=== PATIENT | male | born 1985 | race Caucasian/White ===

== ENCOUNTER 2018-03-04 11:43 | Inpatient (IN) | payer SELFPAY ==
[~2018-03-04] VITALS: Ht 190.5 cm; Wt 96.6 kg
[2018-03-05 10:55] VITALS: BP 125/74
[2018-03-05] MEDS ORDERED: MOTRIN800 MG PO (11:52)
[2018-03-05] MEDS ORDERED: TYLENOL EXTRA500 MG PO (11:54)
[2018-03-05] MEDS ORDERED: LIORESAL10 MG PO (11:54)
[2018-03-05] MEDS ORDERED: BACLOFEN5 MG PO (11:55)
[2018-03-05] MEDS ORDERED: COLACE100 MG PO (11:56)
[2018-03-05] MEDS ORDERED: LOVENOX30 MG/0.3 SC (11:57)
[2018-03-05] MEDS ORDERED: SENNA8.6 MG PO (11:58)
[2018-03-05] MEDS ORDERED: MIRALAX17 GM PO (11:58)
[2018-03-05] MEDS ORDERED: PROVENTIL HFA6.7 GM IH (12:02)
[2018-03-05] MEDS ORDERED: LEXAPRO10 MG PO (12:03)
[2018-03-05] MEDS ORDERED: GABAPENTIN100 MG PO (12:04)
[2018-03-06 00:14] VITALS: BP 117/74
[2018-03-06 05:07] VITALS: BP 102/66
[2018-03-06 06:51] LABS: HEMATOCRIT 30.9 % (38.0-50.0); HEMOGLOBIN 10.2 G/DL (12.5-16.6); MCH 28.8 PG (29.0-34.0); MCV 87.3 FL (86-99); PLATELET COUNT 370 K/uL (156-360); RBC DIS.WIDTH-CV 13.1 % (11.8-14.6); RBC DIS.WIDTH-SD 40.5 % (39-53); RED BLOOD COUNT 3.54 M/uL (4.00-5.50); WHITE BLOOD COUNT 6.7 K/uL (4.1-10.2)
[2018-03-06 07:13] LABS: ALKALINE PHOSPHATASE 96 IU/L (3-129); ALT (GPT) 32 IU/L (3-49); AST (GOT) 18 IU/L (2-34); CHLORIDE 103 MEQ/L (99-109); CREATININE 0.8 MG/DL (0.6-1.3); GFR ESTIMATE (CALCULATED) > 59 mL/min/ (58.99-99999); GLUCOSE 103 mg/dL (70-99); POTASSIUM 4.4 MEQ/L (3.7-5.4); SODIUM 139 MEQ/L (136-147); TOTAL BILIRUBIN 0.9 MG/DL (0.0-1.0); TOTAL PROTEIN 6.5 G/DL (6.4-8.3); UREA NITROGEN (BUN) 18 mg/dL (9-23)
[2018-03-06 14:15] VITALS: BP 139/56
[2018-03-07 04:13] VITALS: BP 118/68
[2018-03-07 16:00] VITALS: BP 108/66
[2018-03-08 04:21] VITALS: BP 108/67
[2018-03-08 16:00] VITALS: BP 117/66
[2018-03-09 03:55] VITALS: BP 114/68
[2018-03-09 16:44] VITALS: BP 105/64
[2018-03-10 04:30] VITALS: BP 102/60
[2018-03-10 05:33] LABS: HEMATOCRIT 29.8 % (38.0-50.0); HEMOGLOBIN 9.9 G/DL (12.5-16.6); MCH 29.3 PG (29.0-34.0); MCHC 33.2 G/DL (30.0-36.0); MCV 88.2 FL (86-99); PLATELET COUNT 364 K/uL (156-360); RBC DIS.WIDTH-CV 14.1 % (11.8-14.6); RBC DIS.WIDTH-SD 43.5 % (39-53); RED BLOOD COUNT 3.38 M/uL (4.00-5.50); WHITE BLOOD COUNT 6.6 K/uL (4.1-10.2)
[2018-03-10 06:16] LABS: ALBUMIN 3.7 G/DL (3.2-4.8); ALKALINE PHOSPHATASE 119 IU/L (3-129); ALT (GPT) 24 IU/L (3-49); AST (GOT) 16 IU/L (2-34); CHLORIDE 105 MEQ/L (99-109); CREATININE 0.7 MG/DL (0.6-1.3); GFR ESTIMATE (CALCULATED) > 59 mL/min/ (58.99-99999); GLUCOSE 101 mg/dL (70-99); POTASSIUM 4.3 MEQ/L (3.7-5.4); SODIUM 140 MEQ/L (136-147); TOTAL BILIRUBIN 0.6 MG/DL (0.0-1.0); TOTAL PROTEIN 5.9 G/DL (6.4-8.3); UREA NITROGEN (BUN) 18 mg/dL (9-23)
[2018-03-10 15:31] VITALS: BP 124/73
[2018-03-11 05:57] VITALS: BP 105/67
[2018-03-11 15:20] VITALS: BP 102/62
[2018-03-12 06:01] VITALS: BP 112/69; BP 163/88
[2018-03-12 15:35] VITALS: BP 110/62
[2018-03-13 04:29] VITALS: BP 114/64
[2018-03-13 15:58] VITALS: BP 126/80
[2018-03-14 05:56] VITALS: BP 112/71
[2018-03-14 15:46] VITALS: BP 122/62
[2018-03-15 05:03] VITALS: BP 108/65
[2018-03-15 15:26] VITALS: BP 109/64
[2018-03-16 05:19] VITALS: BP 112/72
[2018-03-16 05:37] LABS: HEMATOCRIT 34.3 % (38.0-50.0); HEMOGLOBIN 11.2 G/DL (12.5-16.6); MCH 29.1 PG (29.0-34.0); MCHC 32.7 G/DL (30.0-36.0); MCV 89.1 FL (86-99); PLATELET COUNT 318 K/uL (156-360); RBC DIS.WIDTH-CV 13.9 % (11.8-14.6); RBC DIS.WIDTH-SD 44.9 % (39-53); RED BLOOD COUNT 3.85 M/uL (4.00-5.50)
[2018-03-16 06:14] LABS: ALBUMIN 3.8 G/DL (3.2-4.8); ALKALINE PHOSPHATASE 147 IU/L (3-129); ALT (GPT) 27 IU/L (3-49); AST (GOT) 16 IU/L (2-34); CHLORIDE 103 MEQ/L (99-109); CREATININE 0.8 MG/DL (0.6-1.3); GFR ESTIMATE (CALCULATED) > 59 mL/min/ (58.99-99999); GLUCOSE 88 mg/dL (70-99); POTASSIUM 4.3 MEQ/L (3.7-5.4); SODIUM 139 MEQ/L (136-147); TOTAL BILIRUBIN 0.5 MG/DL (0.0-1.0); TOTAL PROTEIN 6.1 G/DL (6.4-8.3); UREA NITROGEN (BUN) 15 mg/dL (9-23)
[2018-03-16] MEDS ORDERED: LEXAPRO10 MG PO (13:08)
[2018-03-16] MEDS ORDERED: TYLENOL EXTRA500 MG PO (13:08)
[2018-03-16] MEDS ORDERED: OXYCODONE HCL5 MG PO (13:08)
[2018-03-16] MEDS ORDERED: SENNA PLUS TAB1 EACH PO (13:08)
[2018-03-16] MEDS ORDERED: PANTOPRAZOLE SO40 MG PO (13:08)
[2018-03-16] MEDS ORDERED: MIRALAX17 GM PO (13:08)
[2018-03-16] MEDS ORDERED: BACLOFEN5 MG PO (13:08)
[2018-03-16] MEDS ORDERED: MOTRIN800 MG PO (13:08)
[2018-03-16] MEDS ORDERED: GABAPENTIN100 MG PO (13:08)
[2018-03-16] MEDS ORDERED: LOVENOX30 MG/0.3 SC (13:08)
[2018-03-16] MEDS ORDERED: COLACE100 MG PO (13:08)
[2018-03-16 16:00] VITALS: BP 111/76
[2018-03-17 06:02] VITALS: BP 114/76
== END 2018-03-17 10:40 | disposition home health service (06) | DRG 560 ==
LOC: 3WEST 11:43 → ENPENDDIS 03-17 → 3WEST 03-17 10:40
PROVIDERS: Physical Medicine & Rehabilitation Pain Medicine
DX: S72.302D Unspecified fracture of shaft of left femur, subsequent encounter for closed fracture with routine healing (principal); S82.141D Displaced bicondylar fracture of right tibia, subsequent encounter for closed fracture with routine healing; S82.202D Unspecified fracture of shaft of left tibia, subsequent encounter for closed fracture with routine healing; S92.323D Displaced fracture of second metatarsal bone, unspecified foot, subsequent encounter for fracture with routine healing; S62.91XD Unspecified fracture of right hand, subsequent encounter for fracture with routine healing; V43.52XD Car driver injured in collision with other type car in traffic accident, subsequent encounter; R26.9 Unspecified abnormalities of gait and mobility; D62 Acute posthemorrhagic anemia; D69.6 Thrombocytopenia, unspecified; F43.10 Post-traumatic stress disorder, unspecified; F43.23 Adjustment disorder with mixed anxiety and depressed mood; M48.061 Spinal stenosis, lumbar region without neurogenic claudication; M51.36 Other intervertebral disc degeneration, lumbar region; F31.9 Bipolar disorder, unspecified; J45.20 Mild intermittent asthma, uncomplicated; M19.90 Unspecified osteoarthritis, unspecified site
CPT/HCPCS: 73130; 80053; 85027; 97110 GO; 97530 GP; 99202; J1650